=== PATIENT | male | born 1995 | race Caucasian/White ===

== ENCOUNTER 2016-11-17 19:44 | Emergency (ER) | payer OTHER ==
[~2016-11-17] VITALS: Ht 165.1 cm; Wt 59.0 kg
[2016-11-17 23:45] VITALS: BP 133/61
== END 2016-11-18 00:21 | disposition home or self-care (01) ==
LOC: ER 20:40
DX: F41.0 Panic disorder [episodic paroxysmal anxiety] (principal); F39 Unspecified mood [affective] disorder; F43.0 Acute stress reaction
CPT/HCPCS: 99284

== ENCOUNTER → 2023-11-07 | Emergency (ER) | payer OTHER ==
[~2023-11-07] VITALS: Ht 165.1 cm; Wt 63.5 kg
[2023-11-07 10:18] VITALS: O2SAT 98
[2023-11-07 10:46] VITALS: BP 121/70; PULSE 51; RESP 18; TEMP 97.7; O2SAT 99
== END ==
LOC: ER 10:16
DX: S01.511D Laceration without foreign body of lip, subsequent encounter (principal); F41.9 Anxiety disorder, unspecified; X58.XXXD Exposure to other specified factors, subsequent encounter
CPT/HCPCS: 99281; Z7610